=== PATIENT | male | born 1995 | race Caucasian/White ===

== ENCOUNTER 2021-04-15 08:58 | Emergency (ER) | payer MEDICAID ==
[~2021-04-15] VITALS: Ht 177.8 cm; Wt 70.3 kg
[2021-04-15 09:04] VITALS: BP 127/85
--- NOTE | 2021-04-15 09:41 | NUR ---
COVID PCR AND STREP SWABS DONE AND SENT TO LAB
[2021-04-15] MEDS ORDERED: AZIT250T13 PO (09:48)
== END 2021-04-15 10:02 | disposition home or self-care (01) ==
LOC: ER 09:00
DX: J02.9 Acute pharyngitis, unspecified (principal); Z20.822 Contact with and (suspected) exposure to COVID-19; Z88.0 Allergy status to penicillin
CPT/HCPCS: 86403-TC; C9803; U0003

== ENCOUNTER 2021-06-14 16:10 | Emergency (ER) | payer OTHER ==
[~2021-06-14] VITALS: Ht 177.8 cm; Wt 74.8 kg
[~2021-06-14 16:10] MED LIST: AZIT250T13 PO
[2021-06-14 16:45] VITALS: BP 119/77
--- NOTE | 2021-06-14 18:00 | NUR ---
Dressing on bridge of nose applied by patient - intact. No active nasal bleeding noted.
--- NOTE | 2021-06-14 18:47 | NUR ---
Patient discharged to home in stable condition. Written and verbal after care instructions given. Patient verbalizes understanding of instruction.
== END 2021-06-14 18:47 | disposition home or self-care (01) ==
LOC: ER 16:21
DX: S02.2XXA Fracture of nasal bones, initial encounter for closed fracture (principal); S06.9X0A Unspecified intracranial injury without loss of consciousness, initial encounter; Z88.0 Allergy status to penicillin; Z79.899 Other long term (current) drug therapy; Y04.2XXA Assault by strike against or bumped into by another person, initial encounter; Y93.89 Activity, other specified; Y92.89 Other specified places as the place of occurrence of the external cause; Y99.8 Other external cause status
CPT/HCPCS: 70160-TC